=== PATIENT | female | born 1990 | race Caucasian/White ===

== ENCOUNTER 2016-05-18 12:27 | Emergency (ER) | payer OTHER, BC ==
[~2016-05-18] VITALS: Ht 144.7 cm; Wt 45.4 kg
[~2016-05-18 12:27] MED LIST: AMOXICILLIN500 MG PO; AUGMENTIN 875875 MG PO; CEFTIN500 MG PO; CLARITIN10 MG PO; FLAGYL500 MG PO; FLONASE 0.05% 121 EA NAS; KEFLEX500 MG PO; MACROBID100 M1 PO; NKHM; OMNICEF300 MG PO; PHENERGAN25 M1 PO; PREDNICOT20 MG PO; PRENTAL 1 PLUS1 TAB PO; ZOFRAN4 MG PO
[2016-05-18] MEDS ORDERED: CYCLOBENZAPRINE10 MG PO (15:19)
[2016-05-18] MEDS ORDERED: NAPROSYN500 MG PO (15:19)
== END 2016-05-18 15:25 | disposition home or self-care (01) ==
LOC: ED 12:27
DX: S16.1XXA Strain of muscle, fascia and tendon at neck level, initial encounter (principal); V89.2XXA Person injured in unspecified motor-vehicle accident, traffic, initial encounter; Y93.89 Activity, other specified; Y92.488 Other paved roadways as the place of occurrence of the external cause; Y99.9 Unspecified external cause status